=== PATIENT | male | born 1960 | race Caucasian/White ===

== ENCOUNTER 2017-12-19 15:11 | Emergency (ER) | payer OTHER, MEDICAID ==
--- NOTE | 2017-12-19 15:48 | CPEKG ---
Heart Rate: 76 RR Interval: 789 P-R Interval: 164 QRSD Interval: 80 QT Interval: 364 QTC Interval: 410 P [place]: 57 QRS [place]: 28 T Wave [place]: 32 EKG Severity - NORMAL ECG - EKG Impression: SINUS RHYTHM Electronically Signed By: Mark White 22-Dec-2017 07:51:27
[2017-12-19 16:09] LABS: PLATELET COUNT 325 10^3/uL (150-400)
[2017-12-19 16:15] LABS: INR 0.86 (0.83-1.16); PROTIME(PATIENT) 11.7 SEC (12.0-15.0)
[2017-12-19 18:06] VITALS: TEMP 98.2
[2017-12-19 18:44] VITALS: BP 123/67; PULSE 78; RESP 20; O2SAT 95
[2017-12-19] MEDS ORDERED: OXYCODONE/APAP 5/325MG PREPACK#4 BTL TAKEHOME ONE ×2 (20:02→20:12)
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
== END 2017-12-19 20:15 | disposition home or self-care (01) ==
LOC: CED 15:11
DX: J44.9 Chronic obstructive pulmonary disease, unspecified (principal); R09.02 Hypoxemia; F17.210 Nicotine dependence, cigarettes, uncomplicated; Z63.8 Other specified problems related to primary support group; Z79.01 Long term (current) use of anticoagulants
CPT/HCPCS: 71046-PO; 80048-PO; 80076-PO; 82550-PO; 83605-PO; 83880-PO; 85025-PO; 85610-PO; 85730-PO